=== PATIENT | male | born 1945 | race Asian ===

== ENCOUNTER 2020-04-30 02:01 | Inpatient (IN) | payer SELFPAY ==
[~2020-04-30] VITALS: Ht 167.6 cm; Wt 61.7 kg
[2020-04-30 02:09] VITALS: Ht 167.6 cm; Wt 61.7 kg
--- NOTE | 2020-04-30 02:35 | NUR ---
PT BIB SON FOR C/O RIGHT SIDED PERIUMBILICAL PAIN, NAUSEA, AND VOMITING X 1 DAY. PER THE SON PT HAS HX OF BOWEL OBSTRUCTION AND HAS SX FOR THIS ISSUE BEFORE. SCAR NOTED TO RIGHT PERIUMBILICAL AREA. PT A&0X4, SPEAKING FULL CLEAR SENTENCES. PT BREATHING EVEN AND UNLABORED. CM AND [address] MSE COMPLETED BY MD AYOUB. WILL CONTINUE TO MONITOR
[2020-04-30 02:40] LABS: CALCIUM 10.2 mg/dL (8.5-10.1); CARBON DIOXIDE 26.7 mmol/L (21-32); CHLORIDE SERUM 96 mmol/L (98-107); CREATININE SERUM 1.7 mg/dL (0.7-1.3); GLUCOSE SERUM 165 mg/dL (74-106); POTASSIUM SERUM 3.7 mmol/L (3.5-5.1); SODIUM SERUM 138 mmol/L (136-145)
[2020-04-30 02:44] LABS: ALKALINE PHOSPHATASE 74 U/L (46-116); ALT/SGPT 40 U/L (16-63); AMYLASE 94 U/L (25-115); AST/SGOT 27 U/L (15-37); BILIRUBIN TOTAL 2.36 mg/dL (0.20-1.00); LIPASE 91 IU/L (73-393)
[2020-04-30 02:45] LABS: ALBUMIN 5.1 g/dL (3.4-5.0); TOTAL PROTEIN, SERUM 9.5 g/dL (6.4-8.2)
[2020-04-30 02:51] LABS: PLATELET COUNT 227 x10^3mcL (130-400); RED CELL DISTRIBUTION WIDTH 12.7 % (11.5-14.5)
[2020-04-30 02:56] LABS: BASOPHIL % 2.2 % (0-2)
--- NOTE | 2020-04-30 03:20 | NUR ---
PT TO CT AT THIS TIME VIA [facility].
--- NOTE | 2020-04-30 04:01 | NUR ---
PT RESTING IN GURNEY IN NAD. PT A&0X4, SPEAKING FULL CLEAR SENTENCES. PT BREATHING EVEN AND UNLABORED. PT STATES PAIN IS BETTER AND NO ACTIVE NAUSEA OR VOMITING NOTED. CM AND [address] WILL CONTINUE TO MONITOR.
--- NOTE | 2020-04-30 04:02 | NUR ---
PER MD CHAPIN OKAY TO JUST DIP URINE AND NO NEED TO SENT URINE TO LAB FOR URINALYSIS
--- NOTE | 2020-04-30 04:43 | NUR ---
MD RESIDENT GARCÍA AT BEDSIDE SPEAKING WITH PT ABOUT PLAN OF CARE.
--- NOTE | 2020-04-30 04:51 | NUR ---
REPORT CALLED TO JARRED MONTIEL.
--- NOTE | 2020-04-30 05:17 | NUR ---
PT TRANSFERED TO [facility] AT THIS TIME VIA WHEELCHAIR BY XAVI RODRIGUEZ. PT AWAKE AND ALERT, BREATHING EVEN AND UNLABORED. IV FLUIDS ENDORSED TO JARRED MONTIEL. IV INTACT AND FLUSHES WITH NO COMPLICATIONS. PT AND FAMILY VERBALIZE UNDERSTANDING OF PLAN OF CARE.
[2020-04-30 05:31] LABS: CHOLESTEROL/HDL RATIO 4.4
--- NOTE | 2020-04-30 06:17 | NUR ---
PT RECIEVED FROM ED VIA WHEEL CHAIR ACCOMPANIED BY NURSE. PT AMBULATED FROM WHEELCHAIR TO BED WITH EASE. PT A/O X4, CALM AND COOPERATIVE. MANDARIN SPEAKING. PHOTOGRAPHY AND PRINTS CURATOR PHONES USED TO OBTAIN ADMISSION INFORMATION. PT ADMITTED FOR SBO, ABD X1 DAY. DENIES PAIN AT THIS TIME. PT MED/SURG, DENIES CP, NV, DIZZINESS, OR PALPATATIONS AT THIS TIME. PALPABLE PULSES, NO EDEMA NOTED AT THIS TIME. BREATHING E/U ON RA. DENIES SOB. AND SOFT AND FLAT. BS HYPOACTIVE AT THIS TIME. PT AMBULATORY AT BASELINE. DENIES PAIN OR DISCOMFORT. IV TO LAC, CDI AND INFUSING. BED AT LOWEST POSITION. CALL LIGHT WITHIN REACH. WILL ENDORSE TO DAY NURSE.
--- NOTE | 2020-04-30 07:30 | NUR ---
RECEIVED PT FROM JARRED RN PM AT BEDSIDE, PT IN BED, AXOX4, VERBLA, APPEARED ANXIOUS, MANDARIN SPEAKING, COOPERATIVE W/ POC AT THIS TIME, ABLE TO MAKE NEEDS KNOWN, NO FACIAL DROOP/SLURRED SPEECH, PERRLA, RESP E/U, RA, LUNGS CTAB, NO SOB/COUGH, CHEST RISE SYMMETRICALLY, MEDSURG, ABD FLAT/NON-TENDER, BS ACTIVE X 4, AMBULATORY, CONTINENT, GENERALIZED WEAKNESS, PALP PULSES, CAP REFILL < 2S, NPO AT THIS TIME, SEE SHIFT ASSESSMENT, DENIED PAIN/DISCOFMRT, DENIED CP/PALPITATION, DENIED ROMERO/N/V/D, ALL NEEDS ADDRESSED, SAFETTY PROTOCOL FOLLOWED, CONTINUE TO MONITOR
--- NOTE | 2020-04-30 08:45 | NUR ---
MARINE FIRE FIGHTER USED TO COMMUNICATE W/ PT, CALELD SON AND UPDATED W/ CURRENT POC, PT CALMED AND COOPERATIVE W/ POC AFTER TALKING TO SON, PT AWARE OF URINE NEEDED FOR UA, UDS PER MD ORDER, SAID WILL NOTIFY NURSE WHEN HAVIGN URINE SAMPLE, ULTRASOUND AND RADIATION DEPT AWARE OF NEW ORDER, IV PATENT AND INFUSING WELL, DERSSING CDI, PT RESTING IN BED, CONTINUE TO MONITOR
[2020-04-30 08:54] VITALS: BP 109/62
--- NOTE | 2020-04-30 09:12 | NUR ---
PT HAVING U.S. ABD AT BEDSIDE AT THIS TIME, IN NO ACUTE DISTRESS, DENIED PAIN/DISCOMFORT, DENIED ROMERO/N/V/D, NO URINE AT THIS TIME, CONTINUE TO MONITOR
--- NOTE | 2020-04-30 09:34 | NUR ---
URINE COLLECTED FOR UA, UDS PER MD ORDER, SEND TO LAB, PT AWARE, CONTINYOVANI TO MONITOR
--- NOTE | 2020-04-30 11:04 | NUR ---
DR WARREN AND DR CARRIE FERGUSON SEEN PT AT BEDSIDE, SON ON PHONE DURING ASSESSMENT AND DISCUSSION ASSSITED W/ TRANSLATION AND CALM PT DOWN, PT DENIED PAIN/DISCOMFRT, DENIED ROMERO/N/V/D, SON REQUESTED TO HAVE CEPHALOSPORIN AND AMYLACEUM FOR PT PER PT HAD THIS REMEDY ALL THE TIME THE LAST 20 YEARS BACK IN [place] AND IT WORKED FOR PT AT THIS TIME DESPITE DIAGNOSIS, PT REQUESTED TO INCREASED IV FLUID RATE TO MAX, EXPLAINED TO PT AND SON RISK OF FLUID OVERLOAD, DR WARREN CHANGED TO NS 125 ML/HR FROM 70ML/HR AT THIS TIME, SBO FOLLOW THROUGH XR TAKEN 2ND TIMES, UNABLE TO SEE D/T PT NON-COMPLIANT W/ RIGHT-SIDED LYING PER PROTOCOL, PT ASKED TO LIE TO RIGHT SIDE OR AMBULATE ALONG HALLWAY, PT REFUSED TO AMBULATE AT THIS TIME, AGREED TO LIE TO RIGHT SIDE, CHARGE NURSE AWARE, DR WARREN AWARE, COTNINUE TO MONITOR
--- NOTE | 2020-04-30 11:48 | NUR ---
PT ASKED TO CALL SON AND DEMANDED TO RUN IV TO MAX RATE, EXPLAINED TO SON AND PT RISK OF FLUID OVERLOAD, ISHAAN. W/ PT'S ADVANCED AGE, SON VERBALLY UNDERSTAND BUT PT STILL DEMAND THAT IV FLUID SHOULD BE AT MAX LEVEL AND HE NEEDED AT LEAST 4 IV BAG TO "FLUSH OUT" THE OBSTRUCTION LIKE THE WAY HE HAD IN [place], PER PT, "IT'S WORK", DR WARREN AWARE, ORDERED TO CHANGE NS TO D5NS AT SAME RATE, CHARGE NURSE AWARE, SON AWARE, PT AWARE, PT ENCOUARGED TO AMBULATE OR LIE TO RIGHT SIDE, STILL REFUSED TO AMBULATE BUT PROMISED TO LIE TO RIGHT SIDE FOR SBO FOLLOW THROUGH EXAM, CONTINUE TO MONITOR
[2020-04-30 12:17] VITALS: BP 116/67
[2020-04-30 12:28] LABS: UA SPECIFIC GRAVITY >=1.030 (1.005-1.035); microscopic required? YES; urine erythrocyte TRACE (NEGATIVE)
[2020-04-30 12:31] LABS: AMPHETAMINE QUAL UR NONE DETECTED (See below)
--- NOTE | 2020-04-30 12:57 | NUR ---
PT CALLED SON, INSISTED TO HAVE IV FLUID AT MAX LEVEL, EXPLAINED TO PT AND SON TO F/U ORDER AND RISK OF FLUID OVERLOAD, SON ASKED TO BRING DOCUMENTATION FROM [place] FOR DOCTOR TO REVIEW, TOLD SON TO BRING IT TO [facility] WILL BRING IT TO DR WARREN, PT NON-COMPLIANT W/ AMBULATORY AND RIGHT SIDE LYING POSITION, 3RD TIME XRAY DONE, PER RADITATION TECH, UNABLE TO SEE FOLLOW THROUGH, CONT TO ENCOURAG PT TO LIE TO RIGHT SIDE OR AMBULATION, SON TALKED TO PT ON PHONE, PT AGGRESS TO LIE TO RIGHT SIDE, CHARGE NURSE EJ AWARE, CONTINUE TO MONITOR
--- NOTE | 2020-04-30 16:35 | NUR ---
Discount pharmacy card and list to low cost medical clinics given to patient.
--- NOTE | 2020-04-30 16:46 | NUR ---
PT SEEN BY DR COTO SURGEON AT BEDSIDE, DR TORRES TALKED TO SON VIA PHONE, QUESTION ASKED AND ANSWERED, NO FURTHER CONCERN NEEDED WHED ASKED, PT RESTING IN BED, IN NON-COMPLIANT W/ RIGHT SIDE LYING AND AMBULATION FOR SBO FOLLOW THROUGH PROCEDURE, EDUACTED PT R/T FOLLOW UP W/ REQUIREMENT OF PRECEDURE, SAID WILL TRY TO STAY ON RIGHT SIDE, IV PATENT AND INFUSING WELL, PER PT, HE FELT SO MUCH BETTER AFTER THE ATB IVPB AND REQUEST ANOTHER DOSE AFTER THE 1ST DOSE, EXPLAINED TO PT ATB IVPB GIVEN Q24HR PER MD ORDER, VERBALLY UNDERSTANIDNG, ALL NEEDS ADDRESSED, SAFETY PROTOCOL FOLLOWED, CONTINUE TO MONITOR
--- NOTE | 2020-04-30 17:23 | NUR ---
SON BROUGHT CELLPHONE, RAMP AND CARGO SUPERVISOR TO PT, HANDED TO OT AT BEDSIDE, PT USED IT TO VIDEO CALL FAMILY, CHARGE NURSE AWARE
[2020-04-30 17:33] VITALS: BP 112/70
--- NOTE | 2020-04-30 17:59 | NUR ---
DR WARREN AWARE OF PT CONDITION, NEW ORDER OBTAINE FOR PROTONIX IVP, PT AND SON AWARE, CONTINUE TO MONITOR
--- NOTE | 2020-04-30 18:13 | NUR ---
PT RESTING IN BED, IN NO ACUTE DISTRESS, RESP E/U, RA, NO SOB/COUGH/WHEEZING, DENIED PAIN/DISCOMFORT, DENIED CP/PALPITATION, DENIED ROMERO/N/V/D, IV PATENT AND INFUSING WELL, DRESSING CDI, CONTINUE W/ SBO FOLLOW THROUGH, NPO AT THIS TIME, ALL NEEDS ADDRESSED, SAFETY PROTOCOL FOLLOWED, WILL ENDORSE TO ONCOMING RN
--- NOTE | 2020-04-30 19:20 | NUR ---
SON CALLED AND REPORTED PT HAD GALL BLADDER RMEOVAL 50 YEARS AGO AND HAD COMPLICATION AND HAD TO HAVE 2ND SURGERY TO REMOVE INFECTED GALL BLADDER, PER , SINCE THEN, PT ALWAYS HAVE PROBLEM W/ SBO AND COULD NOT TOLERATED FIRM FOOD AND HIGH FIBER FOOD, PER SON, WHEN PT HAD TX IN [place], PT HAD NGT INSERTION TO SUCTION PART OF OBSTRUCTED SUBSTANCE IN STOMACH AND IT HELPED PT. AMMON MONTIEL PM AWARE TO REFER MESSAGE TO PM MD FOR F/U CARE AND REPORT RSULT NOF SBO FOLLOW THROUGH TO DR CHICA ESPINOSA, CHARGE NURSE EJ MILLIGAN
[2020-04-30 19:25] VITALS: BP 120/72
--- NOTE | 2020-04-30 19:25 | NUR ---
RECEIVED PT AWAKE ALERT AND VERBALLY RESPONSIVE IN MANDARIN ONLY.ON THE PHONE WITH HIS SON AND ABLE TO SPEAK WITH SON REGARDING CARE TONIGHT AND AGREEABLE.ADVISE SON TO ASSURE FATHER CARE BEING GIVEN TO CALM HIM DOWN.CALLED DR. HINOJOSA AND AWARE OF PT AND SON'S CONCERN AND SUGGESTION ABT HIS TX AND AWARE OF SBFT RESULT.DISTAL SBO.WILL TALK TO SON TONIGHT.DENIES ABDOMIONAL PAIN.NO N/V NOTED.ABDOMEN SOFT AND NON-DISTENDED.HYPOACTIVE BOWELSOUNDS.DENIES CHESTPAIN.BP 120/72 MMHG,HR 92.WILL CONTINUE TO MONITOR.
--- NOTE | 2020-04-30 22:24 | NUR ---
PT REPORTED BM X3 TO WATERY STOOL AND APPEARS VERY HAPPY WITH HIS PROGRESS.WILL CONTINUE TO MONITOR.
--- NOTE | 2020-05-01 04:41 | NUR ---
PT SLEPT WELL ALL NIGHT.DENIES ABDOMINAL PAIN.NO N/V NOTED.IV FLUIDS INFUSING WELL.ALL NEEDS MET.WILL CONTINUE TO MONITOR.
[2020-05-01 05:42] VITALS: BP 123/67
--- NOTE | 2020-05-01 05:42 | NUR ---
TEMP THIS AM @ 101.1F.INITIATED COOLING MEASURES BUT REFUSED COLD PACKS BUT WILLING TO WASH HIS FACE WITH WET FACE CLOTH.REFUSED TO REMOVE EXTRA SHEETS AND COVERS.PT REMAINS NPO AT THIS TIME.PAGED .
--- NOTE | 2020-05-01 06:45 | NUR ---
LATEST TEMP CHECKED @ 99.0F.WILL ENDORSE TO AM NURSE.
--- NOTE | 2020-05-01 07:30 | NUR ---
PATIENT IS A&OX4, FOLLOWS COMMANDS AND COOPERATES WELL. MEDSURG PATIENT, DENIES CHEST PAIN. PERIPEHRAL PULSES PALPABLE W/ NO SIGNS OF EDEMA. LUNG SOUNDS CTA BILATERALLY, ONRA, O2 SAT 94%, DENIES SOB. NORMOACTIVE BSX4, ABD FIRM AND TENDER, DENIES ABD PAIN. VOIDS USING RESTROOM. AMBULATORY. SKIN IS INTACT. DENIES ABD PAIN OR DISCOMFORT AT THIS TIME. IV SITE IS CDI. WILL CONTINUE TO MONITOR PATIENT.
[2020-05-01 07:31] LABS: CALCIUM 7.8 mg/dL (8.5-10.1); CARBON DIOXIDE 20.8 mmol/L (21-32); CHLORIDE SERUM 109 mmol/L (98-107); CREATININE SERUM 1.1 mg/dL (0.7-1.3); GLUCOSE SERUM 164 mg/dL (74-106); MAGNESIUM 1.8 mg/dL (1.8-2.4); PHOSPHOROUS 1.7 mg/dL (2.5-4.9); POTASSIUM SERUM 3.5 mmol/L (3.5-5.1); SODIUM SERUM 142 mmol/L (136-145)
[2020-05-01 09:03] VITALS: BP 113/59
--- NOTE | 2020-05-01 09:37 | NUR ---
PATIENT ASKED FOR ME TO SPEAK TO HIS SON ON THE PHONE. ALL QUESTIONS AND CONCERNS WERE ADDRESSED. WILL CONTINUE TO MONITOR.
[2020-05-01 11:26] LABS: BASOPHIL % 0.3 % (0-2); RED CELL DISTRIBUTION WIDTH 13.1 % (11.5-14.5)
[2020-05-01 11:37] LABS: PLATELET COUNT 128 x10^3mcL (130-400)
--- NOTE | 2020-05-01 11:38 | NUR ---
SPOKE WITH DR. PEÑA, AND STATED THAT HE WILL ORDER A KUB TO RULE OUT SMALL BOWEL OBSTRUCTION. WILL NOTIFY MD OF RESULTS WHEN ABLE TO.
[2020-05-01 12:57] VITALS: BP 112/60
--- NOTE | 2020-05-01 14:48 | NUR ---
DR. PEÑA SPOKE WITH PATIENT AND PATIENT'S SON PERTAINING TO DISCHARGE. ALL QUESTIONS AND CONCERNS HAVE BEEN ADDRESSED. MD WILL PUT IN DISCHARGE ORDERS, BUT ORDERED FOR DISHARGE TO OCCUR AFTER PATIENT HAS HAD HIS DINNER, IN ORDER TO ASSESS IF PATIENT TOLERATES DINNER. IF PATIENT TOLERATES, THE PATIENT WILL BE ABLE TO BE DISCHARGED. NO FURTHER ORDERS AT THIS TIME. WILL CONTINUE TO MONITOR PATIENT.
[2020-05-01] MEDS ORDERED: MIRALAX17 GM PO (15:09)
[2020-05-01 15:21] VITALS: BP 112/60
[2020-05-01 16:26] VITALS: BP 109/53
--- NOTE | 2020-05-01 18:09 | NUR ---
PATIENT IS AWAITING FOR PATIENT'S FAMILY TO ARRIVE AND THEN THE PATIENT WILL SIGN THE DISCHAGE PAPERS. PATIENT IS COMFORTABLE AT THIS TIME AND DENIES ANY ABD PAIN. WILL CONTINUE TO MONITOR.
--- NOTE | 2020-05-01 18:47 | NUR ---
PATIENT HAS RECEIVED DISCHARGE INSTRUCTIONS TO GO HOME. ALL QUESTIONS AND CONCERNS HAVE BEEN ADDRESSED FOR PATIENT AND HIS SON. PATIENT DOES NOT APPEAR TO BE ANXIOUS ABOUT GOING HOME. IV HAS BEEN DC AND CATHETER IS INTACT. PATIENT AMBULATED TO LOBBY WITH ME AND WAS PICKED UP BY FAMILY.
== END 2020-05-01 18:45 | disposition home or self-care (01) | DRG 389 ==
LOC: ED 02:01 → MU 04:25
PROVIDERS: Emergency Medicine; ADMIT Student in an Organized Health Care Education/Training Program; ATTEND Student in an Organized Health Care Education/Training Program
DX: K56.609 Unspecified intestinal obstruction, unspecified as to partial versus complete obstruction (principal); N17.9 Acute kidney failure, unspecified; K80.20 Calculus of gallbladder without cholecystitis without obstruction; D72.829 Elevated white blood cell count, unspecified; E87.8 Other disorders of electrolyte and fluid balance, not elsewhere classified; E83.52 Hypercalcemia; E80.6 Other disorders of bilirubin metabolism; E78.00 Pure hypercholesterolemia, unspecified
CPT/HCPCS: C9113; G0378; J0696; J1200; J1885; J2405; J2765; J7030; J7042; Q0092; Q9967